=== PATIENT | male | born 1980 | race Caucasian/White ===

== ENCOUNTER 2016-04-14 20:18 | Emergency (ER) | payer SELFPAY ==
[2016-04-14] MEDS ORDERED: SULFAMETHOXAZOLE 800 MG/TRIMETHOPRIM 160 MG TABLET ONE (23:32)
[2016-04-14] MEDS ORDERED: HYDROCODONE/ACETAMINOPHEN 5/325MG TABLET ONE (23:32)
[2016-04-15] MEDS ORDERED: IBUPROFEN 800 MG TABLET ONE (00:09)
== END 2016-04-15 02:51 | disposition home or self-care (01) ==
LOC: ED 20:18
DX: L02.31 Cutaneous abscess of buttock (principal); F17.210 Nicotine dependence, cigarettes, uncomplicated
CPT/HCPCS: 99283 ×2; 10060 ×2; A9270 ×2